=== PATIENT | male | born 1995 | race Caucasian/White ===

== ENCOUNTER 2016-11-11 16:03 | Emergency (ER) | payer SELFPAY ==
[2016-11-11 17:23] LABS: Amphetamine Not Detected (NotDetected); Barbiturates Screen Not Detected (NotDetected); Benzodiazepine Screen Not Detected (NotDetected); Cocaine Metabolite Screen Not Detected (NotDetected); Medtox Control Line Valid? VALID (VALID); Methadone Not Detected (NotDetected); Methamphetamine Not Detected (NotDetected); Opiate Screen Not Detected (NotDetected); Oxycodone Screen Not Detected (NotDetected); Phencyclidine (PCP) Not Detected (NotDetected); THC/Cannabinoid Screen Not Detected (NotDetected); Tricyclic Screen Not Detected (NotDetected)
[2016-11-11 17:24] LABS: Blood, Urine Negative (Negative); Clarity Clear (Clear); Glucose, Urine (Dipstick) Negative (Negative); Leukocyte Negative (Negative); Nitrite Negative (Negative); Protein, Urine (Dipstick) Negative (Neg-Trace); Specific Gravity, Urine 1.025 (1.005-1.030); pH, Urine 5.5 (5.0-9.0)
[2016-11-11 17:25] LABS: Bilirubin Negative (Negative); Icto Negative (Negative)
[2016-11-11 17:45] LABS: ALT (SGPT) 18 U/L (0-55); AST (SGOT) 18 U/L (5-34); Acetaminophen Less than 3.0 mcg/mL (10.0-30.0); Albumin 4.1 g/dL (3.5-5.0); Alcohol Less than 10 mg/dL (Less than 10); Alkaline Phosphatase 104 U/L (40-150); Anion Gap 47 mmol/L (10-20); BUN (Urea Nitrogen) 10 mg/dL (8.9-20.6); Bilirubin, Total 0.6 mg/dL (0.2-1.2); Calc. Creatinine Clearance 0 mL/min (70-130); Calcium 9.2 mg/dL (7.8-10.44); Carbon Dioxide 24 mmol/L (22-29); Estimated GFR-MDRD Greater than 90; Globulin 3.5 g/dL (2.4-3.5); Glucose 88 mg/dL (70-105); Potassium 3.7 mmol/L (3.5-5.1); Protein, Total 7.6 g/dL (6.0-8.3); Salicylate Less than 5.0 mg/dL (15.0-30.0); Sodium 137 mmol/L (136-145)
[2016-11-11 17:52] LABS: #Basophils 0.1 thou/uL (0.0-0.2); #Eosinphils 0.3 thou/uL (0.0-0.7); #Lymphocytes 3.4 thou/uL (1.20-3.40); #Neutrophils 8.8 thou/uL (1.40-6.50); %Basophils 0.7 % (0.0-1.0); %Eosinophils 2.2 % (0.0-10.0); %Lymphocytes 25.2 % (21.0-51.0); %Monocytes 7.3 % (0.0-10.0); %Neutrophils 64.5 % (42.0-75.0); Hemoglobin 16.1 g/dL (14.0-18.0); Mean Corpuscular HGB CONC 33.6 g/dL (32.0-36.0); Mean Corpuscular Volume 92.2 fl (80.0-94.0); Mean Platelet Volume 12.5 fL (7.4-10.4); PLT Morphology Comment Appears Adequate; Platelet Count 228 thou/uL (130-400); RBC Distribution Width 11.8 % (11.5-14.5); Red Blood Cell (RBC) Count 5.19 mill/uL (4.70-6.10); White Blood Cell (WBC) Count 13.6 thou/uL (4.8-10.8)
[2016-11-11 17:53] LABS: Chloride 103 mmol/L (98-107)
== END 2016-11-11 19:20 | disposition home or self-care (01) ==
LOC: MADERS 16:03
DX: F41.9 Anxiety disorder, unspecified (principal); F32.9 Major depressive disorder, single episode, unspecified; F17.210 Nicotine dependence, cigarettes, uncomplicated
CPT/HCPCS: 36415; 80053; 80306; 80307; 81003; 84443; 85025; 99284

== ENCOUNTER 2017-12-22 01:06 | Emergency (ER) | payer SELFPAY ==
[2017-12-22] MEDS ORDERED: AMOXicillin 250 MG CAP ONE (01:59)
[2017-12-22] MEDS ORDERED: Naproxen 500 MG TAB ONE (01:59)
[2017-12-22] MEDS ORDERED: Sodium Chloride Irrig Solution 250 ML BOT ONE (08:32)
== END 2017-12-22 02:00 | disposition home or self-care (01) ==
LOC: MADERS 01:06
DX: H66.92 Otitis media, unspecified, left ear (principal); E66.9 Obesity, unspecified; F43.10 Post-traumatic stress disorder, unspecified; F41.9 Anxiety disorder, unspecified; F32.9 Major depressive disorder, single episode, unspecified; F17.210 Nicotine dependence, cigarettes, uncomplicated
CPT/HCPCS: 99282

== ENCOUNTER 2018-04-03 15:29 | Emergency (ER) | payer SELFPAY ==
[~2018-04-03 15:29] MED LIST: Lactated Ringer's 1,000 ML BAG ONE
[2018-04-03] MEDS ORDERED: Acetaminophen 500 MG TAB ONE (16:03)
[2018-04-03] MEDS ORDERED: Loperamide HCl 2 MG CAP ONE (16:03)
== END 2018-04-03 18:00 | disposition home or self-care (01) ==
LOC: MADERS 15:29
DX: R19.7 Diarrhea, unspecified (principal); E66.9 Obesity, unspecified; F43.10 Post-traumatic stress disorder, unspecified; F32.9 Major depressive disorder, single episode, unspecified; F41.9 Anxiety disorder, unspecified; F17.210 Nicotine dependence, cigarettes, uncomplicated
CPT/HCPCS: 96360; 96361; J7120

== ENCOUNTER 2018-12-16 00:31 | Emergency (ER) | payer SELFPAY | END 2018-12-16 02:15 | disposition left against medical advice (07) | LOC: MADERS 00:31 | DX: M25.561 Pain in right knee (principal); F17.210 Nicotine dependence, cigarettes, uncomplicated; F41.9 Anxiety disorder, unspecified; F43.10 Post-traumatic stress disorder, unspecified; E66.9 Obesity, unspecified | CPT/HCPCS: 99283 ==

== ENCOUNTER 2019-11-07 00:22 | Emergency (ER) | payer SELFPAY ==
[2019-11-07] MEDS ORDERED: Amoxicillin/Potassium Clav 250 mg/5 ml Oral Suspension ONE (00:39)
[2019-11-07] MEDS ORDERED: Ibuprofen 800 MG TAB ONE (00:39)
[2019-11-07] MEDS ORDERED: AMOXicillin 250 MG CAP ONE (00:40)
== END 2019-11-07 00:45 | disposition home or self-care (01) ==
LOC: MADERS 00:22
DX: K02.9 Dental caries, unspecified (principal); F43.10 Post-traumatic stress disorder, unspecified; F41.9 Anxiety disorder, unspecified; F32.9 Major depressive disorder, single episode, unspecified; F17.210 Nicotine dependence, cigarettes, uncomplicated
CPT/HCPCS: 99282

== ENCOUNTER 2020-05-08 06:28 | Emergency (ER) | payer BC, OTHER ==
[2020-05-08] MEDS ORDERED: Sodium Chloride 0.9% 1,000 ML ONE ×2 (07:25→08:36)
[2020-05-08] MEDS ORDERED: Albuterol 200 PUFF (6.7GM INHALER) ONE (07:25)
[2020-05-08 08:04] LABS: #Basophils 0.1 thou/uL (0.0-0.2); #Eosinphils 0.4 thou/uL (0.0-0.7); #Lymphocytes 3.4 thou/uL (1.20-3.40); #Monocytes 1.1 thou/uL (0.11-0.59); #Neutrophils 6.5 thou/uL (1.40-6.50); %Basophils 1.1 % (0.0-1.0); %Eosinophils 3.5 % (0.0-10.0); %Lymphocytes 29.6 % (21.0-51.0); %Monocytes 9.2 % (0.0-10.0); %Neutrophils 56.6 % (42.0-75.0); Hemoglobin 13.7 g/dL (14.0-18.0); Mean Corpuscular HGB CONC 31.3 g/dL (32.0-36.0); Mean Corpuscular Hemoglobin 27.5 pg (27.0-31.0); Mean Corpuscular Volume 87.9 fL (78.0-98.0); Mean Platelet Volume 9.6 fL (7.4-10.4); Platelet Count 325 thou/uL (130-400); RBC Distribution Width 13.2 % (11.5-14.5); Red Blood Cell (RBC) Count 4.97 mill/uL (4.70-6.10); White Blood Cell (WBC) Count 11.6 thou/uL (4.8-10.8)
[2020-05-08 08:12] LABS: Lactic Acid 1.7 mmol/L (0.5-2.2)
[2020-05-08 08:15] LABS: AST (SGOT) 31 U/L (5-34); Albumin 3.8 g/dL (3.5-5.0); Alkaline Phosphatase 161 U/L (40-110); Anion Gap 15 mmol/L (10-20); BUN (Urea Nitrogen) 11 mg/dL (8.9-20.6); Bilirubin, Total 0.3 mg/dL (0.2-1.2); Calc. Creatinine Clearance 0 mL/min (70-130); Calcium 8.9 mg/dL (7.8-10.44); Carbon Dioxide 29 mmol/L (22-29); Chloride 97 mmol/L (98-107); Estimated GFR-MDRD Greater than 90; Glucose 168 mg/dL (70-105); Potassium 3.8 mmol/L (3.5-5.1); Protein, Total 7.8 g/dL (6.0-8.3); Sodium 137 mmol/L (136-145)
[2020-05-08 08:16] LABS: ALT (SGPT) 61 U/L (8-55)
--- NOTE | 2020-05-08 09:09 | CT ---
CT CHEST WITHOUT CONTRAST: DATE: 05/08/2020. PROVIDED CLINICAL HISTORY: Cough and shortness of breath. FINDINGS: No comparisons. The heart, pericardium, and great vessels are suboptimally evaluated in the absence of IV contrast ma terial but demonstrate an unremarkable unenhanced CT appearance. There is no evidence for thoracic lymph node enlargement with limitations due to lack of IV contrast. The airway appears patent and of normal caliber. The lungs are free of significant opacity. No pleural fluid or pneumothorax apparent. The visualized portions of the upper abdomen demonstrate an unremarkable unenhanced CT appearance. The osseous structures demonstrate no concerning lytic or blastic lesions. IMPRESSION: No evidence for an acute process. POS: JANAY
[2020-05-09 13:14] LABS: SARS-CoV-2 MS2 Positive; SARS-CoV-2 N Gene Negative; SARS-CoV-2 S Gene Negative; SARS-CoV-2 by NAA Not Detected (NotDetected); SARS-CoV-2 orf1ab Negative
== END 2020-05-08 09:35 | disposition home or self-care (01) ==
LOC: MADERS 06:28
DX: R05 Cough (principal); R09.81 Nasal congestion; R52 Pain, unspecified; R06.02 Shortness of breath; Z20.828 Contact with and (suspected) exposure to other viral communicable diseases; F41.9 Anxiety disorder, unspecified; F32.9 Major depressive disorder, single episode, unspecified; F43.10 Post-traumatic stress disorder, unspecified; F17.210 Nicotine dependence, cigarettes, uncomplicated
CPT/HCPCS: 71250; 80053; 83605; 83880; 84484; 85025; 87635; 87804; 93005; J7050; U0003